=== PATIENT | female | born 1980 | race Asian ===

== ENCOUNTER 2016-06-30 00:15 | Inpatient (IN) | payer SELFPAY ==
[~2016-06-30] VITALS: Ht 170.2 cm; Wt 72.6 kg
[2016-06-30] MEDS ORDERED: LACTATED RINGERS 1,000 ML IV SCH (00:52)
[2016-06-30] MEDS ORDERED: OXYTOCIN 10 UNITS/ML VIAL IM ONE (00:55)
[2016-06-30] MEDS ORDERED: NALBUPHINE HYDROCHLORIDE 10 MG/ML VIAL IVP PRN (00:55)
[2016-06-30] MEDS ORDERED: PROMETHAZINE 25 MG/ML VIAL IVP PRN (00:55)
[2016-06-30] MEDS ORDERED: LACTATED RINGERS 500 ML IV ONE (00:55)
[2016-06-30] MEDS ORDERED: MISOPROSTOL 25 MCG TAB VG PRN (01:00)
[2016-06-30 01:32] VITALS: BP 119/72
[2016-06-30] MEDS ORDERED: MISOPROSTOL 25 MCG TAB ONE (01:55)
[2016-06-30] MEDS ORDERED: PRENATAL PLUS I1 TAB PO (03:21)
[2016-06-30] MEDS ORDERED: OXYTOCIN 20 UNITS/LR PREMIX 1,000 ML IV SCH (04:00)
[2016-06-30] MEDS ORDERED: ROPIVACAINE 0.2%/NS PREMIX 250 ML EPI ONE (04:33)
[2016-06-30] MEDS ORDERED: fentaNYL 0.05 MG/ML VIAL ONE (04:49)
[2016-06-30] MEDS ORDERED: OXYTOCIN 20 UNITS/LR PREMIX 1,000 ML IV ONE (05:04)
[2016-06-30] MEDS ORDERED: OXYTOCIN 10 UNITS/ML VIAL ONE (05:05)
[2016-06-30] MEDS ORDERED: TEMAZEPAM 15 MG CAP PO PRN (08:10)
[2016-06-30] MEDS ORDERED: SODIUM PHOSPHATE 118 ML ENEM RC PRN (08:10)
[2016-06-30] MEDS ORDERED: MEASLES, MUMPS, AND RUBELLA 1 VIAL SQVAC PRN (08:10)
[2016-06-30] MEDS ORDERED: WITCH HAZEL 40 PAD PACKAGE TP PRN (08:10)
[2016-06-30] MEDS ORDERED: oxyCODONE/APAP 5/325 MG 1 TAB TAB PO PRN (08:10)
[2016-06-30] MEDS ORDERED: BENZOCAINE/MENTHOL 20%-0.5% 60 GM CAN TP PRN ×3 (08:10→08:55)
--- NOTE | 2016-06-30 10:06 | NUR ---
PATIENT HAS BEEN SCREENED AND CATEGORIZED LOW NUTRITION RISK. PATIENT WILL BE SEEN WITHIN 7 DAYS OF ADMISSION. 07/06/[address]
[2016-06-30] MEDS: HYDROcodone/APAP 5/325 MG 1 TAB TAB PO PRN (10:18)
[2016-06-30] MEDS: IBUPROFEN 800 MG TAB PO PRN ×2 (14:55→20:49)
[2016-06-30] MEDS ORDERED: DOCUSATE SOD/SENNA 50/8.6 MG 1 TAB PO SCH (21:00)
[2016-07-01] MEDS: IBUPROFEN 800 MG TAB PO PRN ×3 (08:27→23:45)
[2016-07-02] MEDS: IBUPROFEN 800 MG TAB PO PRN (02:02)
[2016-07-02] MEDS: HYDROcodone/APAP 5/325 MG 1 TAB TAB PO PRN (07:04)
== END 2016-07-02 15:30 | disposition home or self-care (01) | DRG 775 ==
LOC: MLD 00:15 → MFCC 11:03
PROVIDERS: ADMIT Obstetrics & Gynecology; ATTEND Obstetrics & Gynecology
PROC: 10E0XZZ Delivery of Products of Conception, External Approach (ICD-10-PCS; principal; 2016-06-30)
PROC: 3E0P7GC Introduction of Other Therapeutic Substance into Female Reproductive, Via Natural or Artificial Opening (ICD-10-PCS; 2016-06-30)
PROC: 0W8NXZZ Division of Female Perineum, External Approach (ICD-10-PCS; 2016-06-30)
PROC: 00HU33Z Insertion of Infusion Device into Spinal Canal, Percutaneous Approach (ICD-10-PCS; 2016-06-30)
PROC: 3E0R3CZ (ICD-10-PCS; 2016-06-30)
PROC: 3E0234Z Introduction of Serum, Toxoid and Vaccine into Muscle, Percutaneous Approach (ICD-10-PCS; 2016-07-01)
DX: O80 Encounter for full-term uncomplicated delivery (principal); Z3A.39 39 weeks gestation of pregnancy; Z23 Encounter for immunization; Z37.0 Single live birth; Z88.4 Allergy status to anesthetic agent; Z87.891 Personal history of nicotine dependence